=== PATIENT | female | born 1970 | race American Indian/Alaskan Native ===

== ENCOUNTER 2017-07-10 09:06 | Outpatient (CLI) | payer OTHER ==
--- NOTE | 2017-07-10 14:43 | Ultrasound Report ---
THYROID ULTRASOUND:07/10/17 09:06:00 CLINICAL: Enlarged right thyroid lobe. Status post left thyroidectomy 26 years ago. FINDINGS: High-resolution ultrasound demonstrated an enlarged multinodular right thyroid lobe. It measures 4.7 x 2.5 x 2.5cm. a dominant heterogeneous solid hypoechoic upper pole nodule measures 2.2 x 2.1 x 2.1 cm. A complex lower pole nodule measures 1.3 x 1.2 x 1.0 cm. It is predominantly cystic with a 4 mm mural nodule. The isthmus is thin and measures 3.2 mm AP thickness. IMPRESSION: Enlarged multinodular right thyroid lobe a dominant 2.2 cm upper pole nodule. A 1.3 cm lower pole nodule with a 4 mm mural nodule. Consider ultrasound-guided FNA of this nodule.
== END 2017-07-10 09:07 | disposition home or self-care (01) ==
LOC: SPVWC 09:06
PROVIDERS: ATTEND General Practice
DX: E04.2 Nontoxic multinodular goiter (principal)
CPT/HCPCS: 76536